=== PATIENT | female | born 1990 ===

== ENCOUNTER 2017-05-29 10:05 | Emergency (ER) | payer OTHER ==
[2017-05-29 10:34] VITALS: BP 142/80; PULSE 69; RESP 19; TEMP 98.7; O2SAT 98
[2017-05-29] MEDS ORDERED: Naproxen 550 mg Tab PO STA (10:50)
--- NOTE | 2017-05-29 10:53 | ED PDOC ---
Arrival/HPI - General Chief Complaint: Back Pain Time Seen by Provider: 05/29/17 10:36 Historian: Patient - History of Present Illness Narrative History of Present Illness (Text): 05/29/17 10:53 27 year old female, with no known past medical history and NKDA, presents to the emergency department complaining of lower back for the past week. Patient reports her work includes heavy lifting and constantly bending down. She denies any recent trauma. Patient denies any fever, chills, chest pain, shortness of breath, nausea, vomiting, diarrhea, neck pain, headache, dizziness, or any other complaints. PMD: None Time/Duration: Other (yesterday) Symptom Onset: Sudden Symptom Course: Unchanged Activities at Onset: Light Context: Work Past Medical History - Provider Review Nursing Documentation Reviewed: Yes - Infectious Disease Hx of Infectious Diseases: None - Psychiatric Hx Substance Use: No - Anesthesia Hx Anesthesia: No Hx Anesthesia Reactions: No Hx Malignant Hyperthermia: No Family/Social History - Physician Review Nursing Documentation Reviewed: Yes Family/Social History: No Known Family HX Smoking Status: Never Smoked Hx Alcohol Use: No Hx Substance Use: No Allergies/Home Meds Allergies/Adverse Reactions: Allergies No Known Allergies Allergy (Verified 05/29/17 10:34) Review of Systems - Physician Review All systems were reviewed & negative as marked: Yes - Review of Systems Constitutional: absent: Fevers, Other (Chills) Respiratory: absent: SOB Cardiovascular: absent: Chest Pain Gastrointestinal: absent: Diarrhea, Nausea, Vomiting Musculoskeletal: Back Pain. absent: Neck Pain Neurological: absent: Headache, Dizziness Physical Exam Vital Signs Reviewed: Yes Vital Signs Temp Pulse Resp BP Pulse Ox 05/29/17 10:28 98.7 F 69 19 142/80 98 Temperature: Afebrile Blood Pressure: Normal Pulse: Regular Respiratory Rate: Normal Appearance: Positive for: Well-Appearing, Non-Toxic, Comfortable Pain Distress: None Mental Status: Positive for: Alert and Oriented X 3 - Systems Exam Head: Present: Atraumatic, Normocephalic Pupils: Present: PERRL Extroacular Muscles: Present: EOMI Conjunctiva: Present: Normal Mouth: Present: Moist Mucous Membranes Neck: Present: Normal Range of Motion Respiratory/Chest: Present: Clear to Auscultation, Good Air Exchange. No: Respiratory Distress, Accessory Muscle Use Cardiovascular: Present: Regular Rate and Rhythm, Normal S1, S2. No: Murmurs Abdomen: Present: Normal Bowel Sounds. No: Tenderness, Distention, Peritoneal Signs Back: Present: Paraspinal Tenderness (lumbar), Other (Paraspinal lumbar tenderness ). No: Midline Tenderness Upper Extremity: Present: Normal Inspection. No: Cyanosis, Edema Lower Extremity: Present: Normal Inspection. No: Edema Neurological: Present: GCS=15, CN II-XII Intact, Speech Normal Skin: Present: Warm, Dry, Normal Color. No: Rashes Psychiatric: Present: Alert, Oriented x 3, Normal Insight, Normal Concentration Medical Decision Making ED Course and Treatment: 05/29/17 10:53 Impression: 27 year old female presents with lower back pain that began yesterday after work. Plan: -- Anaprox -- Flexeril -- Urinalysis HCG, Qual Urine -- Reassess and disposition Progress Notes: 05/29/17 15:47 pt reassesed pain imprpved. no saddle anesthesia - Lab Interpretations Lab Results: Lab Results 05/29/17 11:10: Urine HCG, Qual Negative - Medication Orders Current Medication Orders: Discontinued Medications Cyclobenzaprine HCl (Flexeril) 10 mg PO STAT STA Stop: 05/29/17 10:51 Last Admin: 05/29/17 11:13 Dose: 10 mg Naproxen (Anaprox Ds) 550 mg PO STAT STA Stop: 05/29/17 10:51 Last Admin: 05/29/17 11:13 Dose: 550 mg - Scribe Statement The provider has reviewed the documentation as recorded by the Obey Jolly Provider Scribe Attestation: All medical record entries made by the Obey were at my direction and personally dictated by me. I have reviewed the chart and agree that the record accurately reflects my personal performance of the history, physical exam, medical decision making, and the department course for this patient. I have also personally directed, reviewed, and agree with the discharge instructions and disposition. Disposition/Present on Arrival - Present on Arrival Any Indicators Present on Arrival: No History of DVT/PE: No History of Uncontrolled Diabetes: No Urinary Catheter: No History of Decub. Ulcer: No History Surgical Site Infection Following: None - Disposition Have Diagnosis and Disposition been Completed?: Yes Diagnosis: Back pain Disposition: HOME/ ROUTINE Disposition Time: 10:30 Condition: STABLE Discharge Instructions (ExitCare): Acute Low Back Pain (ED) Additional Instructions: please follow up with your doctor. return to er with worsening symptoms or conerns. Prescriptions: Cyclobenzaprine [Cyclobenzaprine HCl] 10 mg PO DAILY PRN #10 tab PRN Reason: Muscle Spasm Naproxen 500 mg PO BID PRN #14 tab PRN Reason: Pain, Mild (1-3) Forms: [facility] ([place]), WORK NOTE
== END 2017-05-29 11:50 | disposition home or self-care (01) ==
LOC: ED 10:05
DX: M54.5 Low back pain (principal)

== ENCOUNTER 2017-12-22 21:13 | Emergency (ER) | payer MEDICAID, OTHER ==
[2017-12-22 21:23] VITALS: TEMP 99.4
[2017-12-22] MEDS ORDERED: Sodium Chloride 0.9% 1,000 ML IV STA (21:45)
[2017-12-22] MEDS ORDERED: Morphine 4 mg/ml ISec IVP STA (21:45)
--- NOTE | 2017-12-22 21:54 | ED PDOC ---
Arrival/HPI - General Chief Complaint: Abdominal Pain Time Seen by Provider: 12/22/17 21:26 Historian: Patient - History of Present Illness Narrative History of Present Illness (Text): 12/22/17 21:51 27 year old female who presents to the Emergency department complaining of left lower abdominal pain radiating to the left flank x 3 days; took OTC advil with min relief; Patient notes pain was intermittent initially but is now persistent and wax and wanes. Additionally, Patient notes mid abdominal pain radiating to the mid back x 1 day. Patient notes pain is severe, rated at 10/10. Patient denies any fever, chills, chest pain, shortness of breath, nausea, vomiting, diarrhea, urinary symptoms, bowel changes, neck pain, headache, dizziness, or any other complaints. pt denied fall/trauma/sick contact, travel counselor denied LOC pt is here for further evaluation pt's without other complaints. PCP: DR Gould Past medical HX: unremarkable past surg hx: s/p appy; s/p b/l tubal ligations family hx: cousin with gall bladder disease; mother with kidney stones Time/Duration: < week (3 days) Symptom Onset: Gradual Symptom Course: Worsening Severity Level: 10, Severe Activities at Onset: Light Context: Home Past Medical History - Provider Review Nursing Documentation Reviewed: Yes - Travel History Have you recently traveled outside [place] w/in the past 3 mons?: No - Past History Past History: Non-Contributing - Infectious Disease Hx of Infectious Diseases: None - Reproductive Menopause: No Currently : Unknown - Psychiatric Hx Substance Use: No - Surgical History Hx Appendectomy: Yes Hx Section: Yes - Anesthesia Hx Anesthesia: No Hx Anesthesia Reactions: No Hx Malignant Hyperthermia: No Family/Social History - Physician Review Nursing Documentation Reviewed: Yes Family/Social History: Other (gallstones, kidney stones) Smoking Status: Never Smoked Hx Alcohol Use: No Hx Substance Use: No Hx Substance Use Treatment: No Allergies/Home Meds Allergies/Adverse Reactions: Allergies No Known Allergies Allergy (Verified 12/22/17 21:20) Home Medications: Home Meds Medication Instructions Recorded Confirmed No Known Home Med 12/22/17 12/22/17 Review of Systems - Review of Systems Constitutional: Normal Eyes: Normal ENT: Normal Respiratory: Normal. absent: SOB, Cough Cardiovascular: Normal. absent: Chest Pain Gastrointestinal: Abdominal Pain (left lower abdominal pain radiating to the left flank; mid abdominal pain radiating to mid back). absent: Diarrhea, Nausea , Vomiting Genitourinary Female: Normal. absent: Dysuria, Frequency, Hematuria Musculoskeletal: Normal. absent: Back Pain, Neck Pain Skin: Normal. absent: Rash Neurological: Normal. absent: Headache, Dizziness Endocrine: Normal Hemo/Lymphatic: Normal Psychiatric: Normal Physical Exam - Physical Exam Narrative Physical Exam (Text): 12/22/17 2145 General: alert/awake, GCS = 15, oriented x 3, resting in bed, uncomfortable, cooperative, interactive; mild distress due to pain Head: NC/AT EYE: PERRLA, EOMI, sclera anicteric, no nystagmus, no photophobia; visual field intact b/l Facial: WNL Oral: uvula/tongue are midline, no exudate/lesions, no drooling/stridor, no dysphonia; intact dentitions; mild dry oral mucosa NECK: intact ROM, no midline tenderness, no nuchal rigidity, no meningeal signs ; no step off Chest: CTA b/l, no w/r/r; no tachypenia, no accessory muscle use noted Chest Wall: no crepitus, no lesions, no gross deformities, no focal tenderness Cardiac: +S1, +S2, no m/r/r, no tachycardia Abdominal: +BS, soft/nd; well nourished/obese patient; no masses/rebound/ guarding/rigidity; +mild/faint le's sign, no mcburney's point tenderness; + mid epigastric tenderness, + left lower abd tenderness Extremities: intact ROM, strength 5/5 grossly intact in all limbs, neurovasc intact b/l; + ambulatory; reflex +2/2 BACK: no step off, no midline tenderness, NO crepitus, no gross deformities noted; Intact ROM; mild left CVAT is noted SKIN: cap refill ~ 1 sec, no ulcerations, no petechiae, no rashes; + mild diaphoresis noted NEURO: CNII-XII WNL, no facial asymmetries, no slurr speech, oriented x 3 NIH stroke scale ~ 0 Psych: normal insight, normal affect; follows command with ease Vital Signs Reviewed: Yes Vital Signs Temp Pulse Resp BP Pulse Ox 12/22/17 21:20 99.4 F 107 H 19 100/64 98 Temperature: Afebrile Blood Pressure: Normal Pulse: Tachycardic Respiratory Rate: Normal Appearance: Positive for: Well-Appearing, Non-Toxic, Uncomfortable. No: Comfortable, Ill-Appearing Pain Distress: Mild Mental Status: Positive for: Alert and Oriented X 3 - Systems Exam Head: Present: Atraumatic, Normocephalic Medical Decision Making ED Course and Treatment: 12/22/17 21:57 Impression: 27 year old female presents to the Emergency department Complaining of left lower abdominal pain radiating to the left flank x 3 days. ? biliary/liver pathology, possible renal/ovarian pathology, r/o infectious, unlikely obstruction Plan: -- VBG -- CT Abd/Pelvis -- Labs -- Pepcid -- Toradol -- Zofran -- Morphine -- Sodium Chloride -- Reassess and disposition Progress Notes: 2245 pt is currently comfortable; pt is awaiting her Urinalysis/CT results 12/22/17 2300 pt is endorsed to Dr Sandoval, overnight Emergency department attending, pt is pending CT/Urinalysis results, pt can be dispositioned accordingly Re-evaluation Time: 22:56 Reassessment Condition: Improving,but remains with symptoms - Lab Interpretations Lab Results: 12/22/17 22:08 12/22/17 22:08 Lab Results 12/22/17 22:08: Sodium 143, Chloride 102, Potassium 3.7, Carbon Dioxide 25, Anion Gap 20, BUN 9, Creatinine 0.6 L, Est GFR ( Amer) > 60, Est GFR (Non -Af Amer) > 60, Random Glucose 154 H, Calcium 9.8, Magnesium 1.6 L, Total Bilirubin 0.1 L, AST 28, ALT 26, Alkaline Phosphatase 58, Total Protein 7.9, Albumin 4.5, Globulin 3.4, Albumin/Globulin Ratio 1.3, Lipase 85 12/22/17 22:08: pO2 32, VBG pH 7.27 L, VBG pCO2 60.0, VBG HCO3 27.6, VBG Total CO2 29.4 H, VBG O2 Sat (Calc) 64.4, VBG Base Excess -0.6 L, VBG Potassium 3.9, Sodium 140.0, Chloride 105.0, Glucose 161 H, Lactate 3.7 H, FiO2 21.0, Venous Blood Potassium 3.9 12/22/17 22:08: PT 11.4, INR 1.00, APTT 30.9 12/22/17 22:08: WBC 9.9, RBC 4.66, Hgb 13.3, Hct 38.3, MCV 82.2, MCH 28.5, MCHC 34.7, RDW 13.1, Plt Count 429, MPV 9.9, Gran % 57.7, Lymph % (Auto) 35.2 H, [place] % (Auto) 5.6, Eos % (Auto) 1.3 L, Baso % (Auto) 0.2, Gran # 5.71, Lymph # ( Auto) 3.5 H, [place] # (Auto) 0.6, Eos # (Auto) 0.1, Baso # (Auto) 0.02 I have reviewed the lab results: Yes Interpretation: Abnormal lab values (elevated Lactic acid) - RAD Interpretation Narrative RAD Interpretations (Text): 12/22/17 22:58 CT abd pelvis - PENDING Radiology Orders: 12/22/17 21:45 ABD & PELVIS IV CONTRAST ONLY [CT] Stat Editor Index: Radiologist - Medication Orders Current Medication Orders: Discontinued Medications Famotidine (Pepcid) 20 mg IVP STAT STA Stop: 12/22/17 21:46 Last Admin: 12/22/17 22:12 Dose: 20 mg IVP Administration Document 12/22/17 22:12 CNR (Rec: 12/22/17 22:12 CNR [id number]) Charges for Administration # of IVP Administrations 1 Sodium Chloride (Sodium Chloride 0.9%) 1,000 mls @ 1,000 mls/hr IV .Q1H STA Stop: 12/22/17 22:44 Last Admin: 12/22/17 22:11 Dose: 1,000 mls/hr eMAR Start Stop Document 12/22/17 22:11 CNR (Rec: 12/22/17 22:11 CNR [id number]) Intravenous Solution Start Date 12/22/17 Start Time 22:11 Ketorolac Tromethamine (Toradol) 30 mg IVP STAT STA Stop: 12/22/17 21:46 Last Admin: 12/22/17 22:12 Dose: 30 mg MAR Pain Assessment Document 12/22/17 22:12 CNR (Rec: 12/22/17 22:12 CNR [id number]) Pain Reassessment Is this a pain reassessment? No IVP Administration Document 12/22/17 22:12 CNR (Rec: 12/22/17 22:12 CNR [id number]) Charges for Administration # of IVP Administrations 1 Morphine Sulfate (Morphine) 4 mg IVP STAT STA Stop: 12/22/17 21:46 Last Admin: 12/22/17 22:12 Dose: 4 mg MAR Pain Assessment Document 12/22/17 22:12 CNR (Rec: 12/22/17 22:12 CNR [id number]) Pain Reassessment Is this a pain reassessment? No IVP Administration Document 12/22/17 22:12 CNR (Rec: 12/22/17 22:12 CNR [id number]) Charges for Administration # of IVP Administrations 1 Ondansetron HCl (Zofran Inj) 4 mg IVP STAT STA Stop: 12/22/17 21:46 Last Admin: 12/22/17 22:11 Dose: 4 mg IVP Administration Document 12/22/17 22:11 CNR (Rec: 12/22/17 22:12 CNR [id number]) Charges for Administration # of IVP Administrations 1 - Transfer of Care Patient signed out to Dr:: Jaime Pending Labs:: UA Pending Radiology Studies:: CT abd/pelvis - Scribe Statement The provider has reviewed the documentation as recorded by the Scribe Minna Kern All medical record entries made by the Scribe were at my direction and personally dictated by me. I have reviewed the chart and agree that the record accurately reflects my personal performance of the history, physical exam, medical decision making, and the department course for this patient. I have also personally directed, reviewed, and agree with the discharge instructions and disposition. Disposition/Present on Arrival - Present on Arrival Any Indicators Present on Arrival: No History of DVT/PE: No History of Uncontrolled Diabetes: No Urinary Catheter: No History of Decub. Ulcer: No History Surgical Site Infection Following: None - Disposition Have Diagnosis and Disposition been Completed?: Yes Diagnosis: Abdominal pain Disposition Time: 23:00 Patient Plan: Transfer To (Dr Sandoval) Patient Problems: Current Active Problems Problem Status Onset Abdominal pain Acute Condition: STABLE Discharge Instructions (ExitCare): Acute Abdomen (Belly Pain) Print Language: ARMENIAN Additional Instructions: Make sure to see your doctor in 1-2 days DRINK PLENTY OF FLUIDS take your medications as prescribed RETURN TO ED IF worse pain, cant breath, persistent vomiting, high fever >101- 102 for hours, altered behavior, slurr speech, facial changes, focal weakness ( arm/leg or both), unable to urinate, heavy/persistent bleeding, passing out, chest pain, or other medical emergencies Forms: [facility] ([place]ian)
[2017-12-22 22:14] LABS: VENOUS BLOOD GAS BASE EXCESS -0.6 mmol/L (0.0-2.0); VENOUS BLOOD GAS PO2 32 mm/Hg (30-55); VENOUS BLOOD PH 7.27 (7.32-7.43)
[2017-12-22 22:19] LABS: BASO # 0.02 K/mm3 (0.0-2.0); BASO % 0.2 % (0.0-3.0); EOS # 0.1 (0.0-0.7); EOS % 1.3 % (1.5-5.0); GRAN # 5.71 (1.4-6.5); GRAN % 57.7 % (50.0-68.0); HEMOGLOBIN 13.3 g/dL (12.0-16.0); LYMPH # 3.5 (1.2-3.4); LYMPH % 35.2 % (22.0-35.0); MEAN CELL VOLUME 82.2 fl (80.0-105.0); MEAN CORPUSCULAR HEMOGLOBIN 28.5 pg (25.0-35.0); MEAN CORPUSCULAR HGB CONC 34.7 g/dl (31.0-37.0); MEAN PLATELET VOLUME 9.9 fl (7.0-11.0); MONO # 0.6 (0.1-0.6); MONO % 5.6 % (1.0-6.0); RBC 4.66 10^6/uL (3.5-6.1); RED CELL DISTRIBUTION WIDTH 13.1 % (11.5-14.5); WHITE BLOOD COUNT 9.9 10^3/ul (4.5-11.0)
[2017-12-22 22:22] LABS: ALB/GLOB RATIO 1.3 (1.1-1.8); ALBUMIN 4.5 g/dL (3.0-4.8); ALT/SGPT 26 U/L (7-56); AST/SGOT 28 U/L (14-36); BLOOD UREA NITROGEN 9 mg/dL (7-21); CALCIUM 9.8 mg/dL (8.4-10.5); GFR AFRICAN-AMERICAN > 60; GFR NON-AFRICAN AMERICAN > 60; LIPASE 85 U/L (23-300)
[2017-12-22 22:23] LABS: PARTIAL THROMBOPLASTIN TIME 30.9 Seconds (25.1-36.5); PROTHROMBIN TIME 11.4 SECONDS (9.4-12.5)
[2017-12-22 23:07] LABS: URINE BILIRUBIN NEGATIVE (NEGATIVE); URINE BLOOD TRACE-INTACT (NEGATIVE); URINE GLUCOSE (UA) NEGATIVE (NEGATIVE); URINE LEUKOCYTE ESTERASE NEGATIVE Leu/uL (NEGATIVE); URINE PROTEIN NEGATIVE mg/dL (<30 mg/dL); URINE UROBILINOGEN 0.2 E.U./dL (<1 E.U./dL)
[2017-12-22 23:12] LABS: URINE APPEARANCE CLEAR (CLEAR); URINE COLOR YELLOW (YELLOW)
[2017-12-22 23:13] LABS: URINE BACTERIA MOD (NEG); URINE WBC 0 - 2 /hpf (0-6)
[2017-12-22 23:21] VITALS: RESP 18
--- NOTE | 2017-12-22 23:31 | ED PDOC ---
Physical Exam Vital Signs Temp Pulse Resp BP Pulse Ox 12/22/17 23:18 99 H 18 136/93 H 100 12/22/17 21:20 99.4 F 107 H 19 100/64 98 Medical Decision Making ED Course and Treatment: 12/22/17 23:00 Patient endorsed to me by . Pending CT results. 12/23/17 00:23 Urine negative, no nitrates, no significant leukocytes found, and will discharge her with diagnosis of terminal ileitis, which may be viral. Instructed patient to follow up with Sales Team Manager. 12/23/17 00:12 CT Abdomen and Pelvis With Intravenous Contrast: FINDINGS: Limitation:Motion artifact degrades image quality. Lung bases: The heart is mildly enlarged. There is minimal dependent atelectasis at the lung bases. ABDOMEN: Liver: There are is fatty infiltration of the liver. Gallbladder and bile ducts: unremarkable Pancreas: unremarkable Spleen: unremarkable Adrenals: unremarkable Kidneys and ureters: unremarkable Stomach and bowel: Stomach is partially distended. Rotation is normal. There is no small bowel obstruction. There is mild distal and terminal ileal wall prominence. There is moderate stool in the right colon. Left colon is incompletely distended which limits evaluation. PELVIS: Appendix: Surgically absent Bladder: unremarkable Reproductive: Uterus and right adnexal structures are unremarkable. There is prominence of the left adnexa. There is a small left adnexal/paraovarian cyst. ABDOMEN and PELVIS: Intraperitoneal space: There is no free air or free fluid. Bones/joints: There are no acute osseous abnormalities. Soft tissues: There is rectus diastases at the umbilicus. Vasculature: Vascular structures are unremarkable. Lymph nodes: There is no pathologic adenopathy. IMPRESSION: No acute solid visceral abnormality; possible terminal ileitis, no obstruction; mild prominence of left adnexa Additional nonemergent findings as described above. Dictated and Authenticated by: Maria M Oden MD - Lab Interpretations Lab Results: 12/22/17 22:08 12/22/17 22:08 Lab Results 12/22/17 22:58: Urine Color Yellow, Urine Appearance Clear, Urine pH 6.0, Ur Specific [place] 1.020, Urine Protein Negative, Urine Glucose (UA) Negative, Urine Ketones Trace H, Urine Blood Trace-intact H, Urine Nitrate Negative, Urine Bilirubin Negative, Urine Urobilinogen 0.2, Ur Leukocyte Esterase Negative , Urine RBC 1 - 3, Urine WBC 0 - 2, Ur Epithelial Cells 3 - 4, Urine Bacteria Mod 12/22/17 22:08: Sodium 143, Chloride 102, Potassium 3.7, Carbon Dioxide 25, Anion Gap 20, BUN 9, Creatinine 0.6 L, Est GFR ( Amer) > 60, Est GFR (Non -Af Amer) > 60, Random Glucose 154 H, Calcium 9.8, Magnesium 1.6 L, Total Bilirubin 0.1 L, AST 28, ALT 26, Alkaline Phosphatase 58, Total Protein 7.9, Albumin 4.5, Globulin 3.4, Albumin/Globulin Ratio 1.3, Lipase 85 12/22/17 22:08: pO2 32, VBG pH 7.27 L, VBG pCO2 60.0, VBG HCO3 27.6, VBG Total CO2 29.4 H, VBG O2 Sat (Calc) 64.4, VBG Base Excess -0.6 L, VBG Potassium 3.9, Sodium 140.0, Chloride 105.0, Glucose 161 H, Lactate 3.7 H, FiO2 21.0, Venous Blood Potassium 3.9 12/22/17 22:08: PT 11.4, INR 1.00, APTT 30.9 12/22/17 22:08: WBC 9.9, RBC 4.66, Hgb 13.3, Hct 38.3, MCV 82.2, MCH 28.5, MCHC 34.7, RDW 13.1, Plt Count 429, MPV 9.9, Gran % 57.7, Lymph % (Auto) 35.2 H, [place] % (Auto) 5.6, Eos % (Auto) 1.3 L, Baso % (Auto) 0.2, Gran # 5.71, Lymph # ( Auto) 3.5 H, [place] # (Auto) 0.6, Eos # (Auto) 0.1, Baso # (Auto) 0.02 I have reviewed the lab results: Yes - RAD Interpretation Radiology Orders: 12/22/17 21:45 ABD & PELVIS IV CONTRAST ONLY [CT] Stat Record Tester: Radiologist - Medication Orders Current Medication Orders: Discontinued Medications Dicyclomine HCl (Bentyl) 10 mg PO ONCE ONE Stop: 12/23/17 00:34 Last Admin: 12/23/17 00:46 Dose: 10 mg Famotidine (Pepcid) 20 mg IVP STAT STA Stop: 12/22/17 21:46 Last Admin: 12/22/17 22:12 Dose: 20 mg IVP Administration Document 12/22/17 22:12 CNR (Rec: 12/22/17 22:12 CNR [id number]) Charges for Administration # of IVP Administrations 1 Sodium Chloride (Sodium Chloride 0.9%) 1,000 mls @ 1,000 mls/hr IV .Q1H STA Stop: 12/22/17 22:44 Last Admin: 12/22/17 22:11 Dose: 1,000 mls/hr eMAR Start Stop Document 12/22/17 22:11 CNR (Rec: 12/22/17 22:11 CNR [id number]) Intravenous Solution Start Date 12/22/17 Start Time 22:11 Ketorolac Tromethamine (Toradol) 30 mg IVP STAT STA Stop: 12/22/17 21:46 Last Admin: 12/22/17 22:12 Dose: 30 mg MAR Pain Assessment Document 12/22/17 22:12 CNR (Rec: 12/22/17 22:12 CNR [id number]) Pain Reassessment Is this a pain reassessment? No IVP Administration Document 12/22/17 22:12 CNR (Rec: 12/22/17 22:12 CNR [id number]) Charges for Administration # of IVP Administrations 1 Morphine Sulfate (Morphine) 4 mg IVP STAT STA Stop: 12/22/17 21:46 Last Admin: 12/22/17 22:12 Dose: 4 mg MAR Pain Assessment Document 12/22/17 22:12 CNR (Rec: 12/22/17 22:12 CNR [id number]) Pain Reassessment Is this a pain reassessment? No IVP Administration Document 12/22/17 22:12 CNR (Rec: 12/22/17 22:12 CNR [id number]) Charges for Administration # of IVP Administrations 1 Ondansetron HCl (Zofran Inj) 4 mg IVP STAT STA Stop: 12/22/17 21:46 Last Admin: 12/22/17 22:11 Dose: 4 mg IVP Administration Document 12/22/17 22:11 CNR (Rec: 12/22/17 22:12 CNR [id number]) Charges for Administration # of IVP Administrations 1 - Scribe Statement The provider has reviewed the documentation as recorded by the Scribe Eris Eddy Provider Scribe Attestation: All medical record entries made by the Scribe were at my direction and personally dictated by me. I have reviewed the chart and agree that the record accurately reflects my personal performance of the history, physical exam, medical decision making, and the department course for this patient. I have also personally directed, reviewed, and agree with the discharge instructions and disposition. Disposition/Present on Arrival - Present on Arrival Any Indicators Present on Arrival: No History of DVT/PE: No History of Uncontrolled Diabetes: No Urinary Catheter: No History of Decub. Ulcer: No History Surgical Site Infection Following: None - Disposition Have Diagnosis and Disposition been Completed?: Yes Diagnosis: Abdominal pain Disposition Time: 00:26 Patient Problems: Current Active Problems Problem Status Onset Abdominal pain Acute Condition: IMPROVED Discharge Instructions (ExitCare): Acute Abdomen (Belly Pain) Print Language: SAMI Additional Instructions: Make sure to see your doctor in 1-2 days DRINK PLENTY OF FLUIDS take your medications as prescribed RETURN TO ED IF worse pain, cant breath, persistent vomiting, high fever >101- 102 for hours, altered behavior, slurr speech, facial changes, focal weakness ( arm/leg or both), unable to urinate, heavy/persistent bleeding, passing out, chest pain, or other medical emergencies Prescriptions: Dicyclomine [Bentyl] 10 mg PO QID PRN #30 cap PRN Reason: Pain, Moderate (4-7) Referrals: Edson Bojorquez MD [Medical Doctor] - Follow up with primary (when available for terminal ileitis) Forms: [employer] (Citizen Of [place])
--- NOTE | 2017-12-23 00:03 | CT ---
EXAM: CT Abdomen and Pelvis With Intravenous Contrast EXAM DATE/TIME: 12/22/2017 9:45 PM CLINICAL HISTORY: 27 years old, female; Pain; Abdominal pain; Prior surgery; Surgery type: - appendectomy; Additional info: Mid abd pain, left lower abd pain x 3 days TECHNIQUE: Axial computed tomography images of the abdomen and pelvis with intravenous contrast. All CT scans at this facility use at least one of these dose optimization techniques: automated exposure control; mA and/or kV adjustment per patient size (includes targeted exams where dose is matched to clinical indication); or iterative reconstruction. Coronal and sagittal reformatted images were created and reviewed. COMPARISON: There are no prior studies for comparison. FINDINGS: Limitation:Motion artifact degrades image quality. Lung bases: The heart is mildly enlarged. There is minimal dependent atelectasis at the lung bases. ABDOMEN: Liver: There are is fatty infiltration of the liver. Gallbladder and bile ducts: unremarkable Pancreas: unremarkable Spleen: unremarkable Adrenals: unremarkable Kidneys and ureters: unremarkable Stomach and bowel: Stomach is partially distended. Rotation is normal. There is no small bowel obstruction. There is mild distal and terminal ileal wall prominence. There is moderate stool in the right colon. Left colon is incompletely distended which limits evaluation. PELVIS: Appendix: Surgically absent Bladder: unremarkable Reproductive: Uterus and right adnexal structures are unremarkable. There is prominence of the left adnexa. There is a small left adnexal/paraovarian cyst. ABDOMEN and PELVIS: Intraperitoneal space: There is no free air or free fluid. Bones/joints: There are no acute osseous abnormalities. Soft tissues: There is rectus diastases at the umbilicus. Vasculature: Vascular structures are unremarkable. Lymph nodes: There is no pathologic adenopathy. IMPRESSION: No acute solid visceral abnormality; possible terminal ileitis, no obstruction; mild prominence of left adnexa Additional nonemergent findings as described above.
[2017-12-23 00:52] VITALS: BP 130/72; PULSE 70; O2SAT 99
== END 2017-12-23 00:51 | disposition home or self-care (01) ==
LOC: ED 21:13
DX: R10.9 Unspecified abdominal pain (principal)
CPT/HCPCS: 74177; 80053; 81001; 82803; 83690; 83735; 85025; 85610; 85730; 96374; 96375; 99284; J1885; J2270; J2405; J7030; Q9967